=== PATIENT | female | born 1990 | race Caucasian/White ===

== ENCOUNTER 2020-03-18 12:54 | Outpatient (REF) | payer MEDICAID, SELFPAY | END 2020-03-18 12:55 | disposition home or self-care (01) | LOC: HO.LAB 12:54 | PROVIDERS: Visit Provider Internal Medicine | DX: Z20.828 Contact with and (suspected) exposure to other viral communicable diseases (principal) | CPT/HCPCS: 87635 ==

== ENCOUNTER 2020-09-02 14:08 | Outpatient (REF) | payer MEDICAID, SELFPAY ==
[2020-09-03 07:13] LABS: COVID-19 Test Negative (Negative)
== END 2020-09-02 14:09 | disposition home or self-care (01) ==
LOC: HO.LAB 14:08
PROVIDERS: Visit Provider Internal Medicine
DX: Z20.822 Contact with and (suspected) exposure to COVID-19 (principal)
CPT/HCPCS: 36415; 87635; C9803

== ENCOUNTER 2020-11-23 00:52 | Emergency (ER) | payer MEDICAID, SELFPAY ==
--- NOTE | ~2020-11-23 | XR_ITS ---
EXAMINATION: XR CHEST CLINICAL INFORMATION: Cough. Congestion. COMPARISON: 10/29/2017 TECHNIQUE: 2 views of the chest were obtained. FINDINGS: The lungs are well expanded. There is no focal consolidation, edema, or effusion. No pneumothorax. The cardiomediastinal silhouette is within normal limits. No acute osseous abnormality. XR/XR chest 2V IMPRESSION: Clear lungs.
[2020-11-23 01:40] VITALS: BP 142/91; PULSE 77; RESP 16; TEMP 37.3; O2SAT 97; BMI 29.0
--- NOTE | 2020-11-23 02:33 | ED_ITS ---
HPI - URI/Sore Throat General Chief Complaint: Upper Respiratory Symptoms Stated Complaint: SOB n coughing Time Seen by Provider: 11/23/20 00:56 Source: patient Mode of arrival: ambulatory History of Present Illness HPI Narrative: 30-year-old female presents with 1 month of cough, shortness of breath, congestion with nasal congestion but denies any fevers, chills, sore throat. She has completed 1 course of Z-Donis provided by her primary care provider and states that when receiving antibiotic she felt much better but as soon is a were finished symptoms returned. Otherwise, she states her LMP is 2 weeks ago and denies any GI or symptoms. Related Data Previous Rx's Medication Instructions Recorded doxycycline hyclate 100 mg PO BID 7 Days #14 cap 11/23/20 Allergies Allergy/AdvReac Type Severity Reaction Status Date / Time Penicillins Allergy Unknown HIVES,RASH Unverified 02/06/20 15:54 Penicillin Allergy Unknown Uncoded 11/17/11 00:00 Review of Systems Review of Systems: Pertinent positives and negatives as stated in HPI 10 point review of systems is otherwise negative. [facility] Past Medical History Source: nursing notes reviewed Social History Social History Advance Directives: No Advance Directives Information Provided: No Physical Exam Vital Signs: Vital Signs: Last Vital Signs Temp 99.1 F 11/23/20 01:40 Pulse 77 11/23/20 01:40 Resp 16 11/23/20 01:40 BP 142/91 H 11/23/20 01:40 Pulse Ox 97 11/23/20 01:40 Body Mass Index 29.0 VITAL SIGNS: Reviewed. GENERAL: Well developed, well nourished, in no acute distress. HEAD: Normocephalic/atraumatic EYES: PERRLA, EOMI EARS: Ext canals without abnormality, TMs non-bulging and non-erythematous NOSE: Nasal congestion with boggy turbinates OROPHARYNX: no oral lesions noted, posterior pharynx clear and non-erythematous without noted tonsillar enlargement/erythema/exudates NECK: Supple, no adenopathy LUNGS: Normal breath sounds, no expiratory wheezes or rhonchi noted. SpO2<97> CARDIOVASCULAR: Regular rate and rhythm without noted murmurs ABDOMEN: Soft, non-tender, non-distended with bowel sounds. SKIN: Inspection of the skin reveals no rashes NEUROLOGIC: Alert and oriented x 4. Strength and sensation to light touch were grossly intact x 4. Course Course Course Narrative: 30-year-old female with history and clinical presentation suggestive of seasonal allergy/ viral etiology for symptomatology but will evaluate with chest x-ray. Review of all investigations there are no acute findings and patient will be treated for sinusitis as her nasal congestion and postnasal drip have been ongoing for more than 10 days. MDM - URI/Sore Throat Lab Data Labs: Lab Results 11/23/20 Range/Units 02:45 Urine Test NEGATIVE (NEGATIVE) Discharge Plan Discharge Clinical Impression: Seasonal allergies, Sinusitis Patient Disposition: Home, Self-Care Instructions: Loratadine (By mouth), Fluticasone (Into the nose), Sinusitis (ED), Allergic Rhinitis (ED) Additional Instructions: Recommend starting [id number] allergy medications such as Claritin and/ or fluticasone. Complete the entire course of antibiotics and follow-up with your primary care provider for re-evaluation. Prescriptions: New doxycycline hyclate 100 mg capsule 100 mg PO BID 7 Days Qty: 14 RF: 0 Referrals: Physician,Unknown [Primary Care Provider] - 2 days
[2020-11-23] MEDS: diphenhydrAMINE HCL 25 MG TABLET PO (02:43)
[2020-11-23] MEDS: Benzonatate 100 MG CAPSULE PO (02:44)
[2020-11-23 03:02] LABS: UPreg QC Valid YES; Urine Pregnancy NEGATIVE (NEGATIVE)
== END 2020-11-23 04:11 | disposition home or self-care (01) ==
PROVIDERS: Emergency Provider Student in an Organized Health Care Education/Training Program
DX: J30.2 Other seasonal allergic rhinitis (principal); J32.9 Chronic sinusitis, unspecified
CPT/HCPCS: 71046; 81025; 99283; 99284; Q0163

== ENCOUNTER 2020-12-07 15:54 | Emergency (ER) | payer OTHER, MEDICAID, SELFPAY ==
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
[2020-12-07 16:22] VITALS: BP 114/74; BP 132/85; PULSE 74; PULSE 80; RESP 18; TEMP 36.7; O2SAT 97; O2SAT 99
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
[2020-12-07] MEDS: Cyclobenzaprine HCl 10 MG TABLET PO (17:21)
== END 2020-12-07 17:23 | disposition home or self-care (01) ==
LOC: HO.ED 17:11
PROVIDERS: Emergency Provider Emergency Medicine
DX: S39.012A Strain of muscle, fascia and tendon of lower back, initial encounter (principal); S29.011A Strain of muscle and tendon of front wall of thorax, initial encounter; V89.2XXA Person injured in unspecified motor-vehicle accident, traffic, initial encounter; Y93.9 Activity, unspecified; Y92.410 Unspecified street and highway as the place of occurrence of the external cause; Y99.9 Unspecified external cause status
CPT/HCPCS: 71046; 72100; 99283

== ENCOUNTER 2023-08-14 18:13 | Outpatient (REF) | payer MEDICAID, SELFPAY ==
[2023-08-14 18:30] LABS: Appearance Urine Cloudy; Color Urine Yellow; Glucose Urine UA Negative (Negative); Leukocyte Esterase Urine Negative (Negative); Nitrite Urine Negative (Negative); PH 5.5 (5.0-9.0); UMIC TRIGGER UACC YES; Urine Blood Small (1+) (Negative); Urine Ketones Negative (Negative); Urine Protein Negative (Neg-Trace)
[2023-08-14 18:46] LABS: Bacteria Urine 2+ (None Seen); Hyaline Casts Urine 0-2 /LPF (0-2); RBC Urine 0-2 /HPF (0-2); WBC Urine 0-5 /HPF (0-5)
== END 2023-08-14 18:14 | disposition home or self-care (01) ==
LOC: HO.HHCLNP 18:13
PROVIDERS: Visit Provider Nurse Practitioner Family
DX: N89.8 Other specified noninflammatory disorders of vagina (principal); R30.0 Dysuria
CPT/HCPCS: 36415; 81001; 81513; 87491; 87591

== ENCOUNTER 2023-10-10 16:57 | Outpatient (REF) | payer MEDICAID, SELFPAY ==
[2023-10-11 09:21] LABS: CT PCR NOT DETECTED (Not Detect.); NG PCR NOT DETECTED (Not Detect.)
[2023-10-18 22:47] LABS: HPV mRNA E6/E7 rflx Not Detected (Not Detected)
== END 2023-10-10 16:58 | disposition home or self-care (01) ==
LOC: HO.HHCLNP 16:57
PROVIDERS: Visit Provider Advanced Practice Midwife
DX: Z01.419 Encounter for gynecological examination (general) (routine) without abnormal findings (principal); Z11.3 Encounter for screening for infections with a predominantly sexual mode of transmission
CPT/HCPCS: 0353U; 87624; 88142

== ENCOUNTER 2024-07-16 16:21 | Outpatient (REF) | payer MEDICAID, SELFPAY ==
--- OUTSIDE RECORDS SUMMARY | 2024-07-16 19:46 | XMS_ITS | Encounter Summary ---
Author Organization [employer] Address [address] [place] [address] Care Team Providers Care Project Finance Analyst Name Role Phone Abiola Campbell NESSA Primary Care Provider [phone] Reason for Visit * Reason Onset Date Comments appt or medication 08/18/2022 Encounter Details Date Type Department Care Team ([facility] st Contact Info) Description 08/18/2022 Telephone [facility] [address] [place] [address] Jenna Hager DDS [address] [place] [address] appt or medication Social History Tobacco Use Types Packs/Day Years Used Date Smoking Tobacco: Every Day Cigarettes Smokeless Tobacco: Never Alcohol Use Standard Drinks/Week Comments Never 0 (1 standard drink = 0.6 oz pur e alcohol) Comments Unknown Sex and Gender Information Value Date Recorded Sex Assigned at Female 03/21/2022 10:16 AM EDT Legal Sex Female 10:16 AM EDT Gender Identity Female 03/21/2022 10:16 AM EDT Sexual Orientation Straight 03/21/2022 10 :16 AM EDT COVID-19 Exposure Response Date Recorded In the last 10 days, have yo u been in contact with someone who was confirmed or suspected to have Coronavirus/COVID-19? No / Unsure 08/03/2022 3:41 PM EDT documented as of this encounter Miscellaneous Notes * Telephone Encounter - Jenna Hager DDS - 08/18/2022 11:39 AM EDT Ericka West pt needs extraction appt and she is waiting on Dr. Kandru availability. I will send pain medication for her, but to please schedule the appts once available. Thanks, Dr. Lagos * Telephone Encounter - Jenna Paul - 08/18/2022 10:55 AM EDT Patient came in as ER patient and was scripted antibiotics. She said they worked initially but ended up having diarrhea from them. She also said as soon as she finished them yesterday the pain came back and radiating to her ear. Pls advise. documented in this encounter Plan of Treatment Not on file documented as of this encounter Visit Diagnoses Not on filedocumented in this encounter Care Teams Project Finance Analyst Relationship Specialty Start Date End Date Abiola Campbell ANP [address] [place] [id number] PCP - General Family Medicine 10/08/19 documented as of this encounter
--- OUTSIDE RECORDS SUMMARY | 2024-07-16 19:46 | XMS_ITS | Encounter Summary ---
Author Organization [employer] [facility] Address [address] [place] [address] Care Team Providers Care Sfdc Technical Architect Name Role Phone Abiola Campbell Primary Care Provider [phone] Reason for Visit * Reason Onset Date Comments Nurse Triage 08/23/2023 Encounter Details Date Type Department Care Team ([facility] st Contact Info) Description 08/23/2023 Telephone [facility] [address] [place], [place] [phone] Abiola Campbell ANP [address] [place] [address] Nurse Triage Social History Tobacco Use Types Packs/Day Years [...] Orientation Straight 03/21/2022 10 :16 AM EDT documented as of this encounter Miscellaneous Notes * Telephone Encounter - Jossy Singh RN - 08/23/2023 11:29 AM EDT Triage call Pt reports cold symptoms which started 08/20/23. Pt reports tactile fever, sore throat, nasal congestion , body aches, nausea, diarrhea, sneezing and cough. Pt had headache yesterday not today tylenol effective for relief. No difficulty breathing, cough is productive with greenish colored phlegm. Pt's two children have had colds and now Pt. Pt is given home care advice. Pt requests to see provider for excuse for work. Pt is advised to come to [facility] for provider to see Pt and obtain work excuse. Pt didn't test for Covid. Unable to check insurance due to system down at time of triage. Protocol Used: Common Cold (Adult) Protocol-Based Disposition: Home Care Positive Triage Question: * Colds with no complications * All higher-acuity triage questions were negative Care Advice Discussed: * Reassurance and Education - Common Cold Symptoms * Treatment for Other Cold Symptoms * Humidifier * Reasons To Call Back - Fever lasts over 3 days - Runny nose lasts over 10 days - You become short of breath - You become worse * Telephone Encounter - Ev Burleson - 08/23/2023 11:16 AM EDT Symptoms: Fever, Nausea But No Vomiting, Body Aches Outcome: Schedule an appointment to be seen within 24 hours Reason: Caller denied all higher acuity questions The caller accepted this outcome documented in this encounter Plan of Treatment Not on file documented as of this encounter Visit Diagnoses Not on filedocumented in this encounter Care Teams Sfdc Technical Architect Relationship Specialty Start Date End Date Abiola Campbell ANP [address] [place] [id number] PCP - General Family Medicine 10/08/19 documented as of this encounter
--- OUTSIDE RECORDS SUMMARY | 2024-07-16 19:46 | XMS_ITS | Encounter Summary ---
Author Organization [employer] Address [address] [place] [address] Care Team Providers Care Recreation Instructor Name Role Phone Abiola Campbell NESSA Primary Care Provider [phone] Reason for Visit * Reason Comments Urinary Frequency Vaginal Discharge Encounter Details Date Type Department Care Team ([facility] st Contact Info) Description 07/16/2024 1:00 PM EST Office Visit [facility] MED[facility]INE [address] [place] [address] CNM [address] [place] [address] Candidiasis of vulva and vagina (Primary Dx); Dysuria; Screening examination for venereal disease; Dermatitis Social History Tobacco Use Types Packs/Day Years Used Date Smoking Tobacco: Every Day Cigarettes Smokeless Tobacco: Never Tobacco Cessation:Ready to Q uit: Not Asked; Counseling Given: Not Answered Alcohol Use Standard Drinks/Week Comments Never 0 (1 standard drink = 0.6 oz pur e alcohol) Comments No Sex and Gender Information Value Date Recorded Sex Assigned at Female 03/21/2022 10:16 AM EDT Legal Sex Female 10:16 AM EDT Gender Identity Female 03/21/2022 10:16 AM EDT Sexual Orientation Straight 03/21/2022 10 :16 AM EDT documented as of this encounter Last Filed Vital Signs Vital Sign Reading Time Taken Comments Blood Pressure 122/84 07/16/2024 1:04 PM EST Pulse 82 07/16/2024 1:04 PM EST Temperature 36.3 ??C (97.4 ??F) 07/16/2024 1:04 PM ES T Respiratory Rate 20 07/16/2024 1:04 PM EST Oxygen Saturation 99% 07/16/2024 1:04 PM EST Inhaled Oxygen Concentration - - Weight 86.6 kg (191 lb) 07/16/2024 1:04 PM EST Height 162.6 cm (5' 4 ) 07/16/2024 1:04 PM EST Body Mass Index 32.79 07/16/2024 1:04 PM EST documented in this encounter Progress Notes * [address], [place] - 07/16/2024 1:00 PM EST Subjective Patient ID: Amara Villalobos is a 33 y.o. female who presents for vaginal symptoms Per triage, notes vaginal irritation and discharge, burning when urine touches skin, but no true dysuria. Treated for trichomonas 09/2023. Gonorrhea/Chlamydia negative from that visit. Broke up with partner, now back together. Not sure if he was ever treated for trichomonas. Would like full STI testing today. Pap NIL/HPV neg 09/2023. Has tubal ligation. LMP 06/18/2024. Reports itchy rash near left nipple x 3 days, no other breast symptoms. Review of Systems Constitutional: Negative for chills and fever. Genitourinary: Positive for dyspareunia, dysuria and vaginal discharge. Negative for pelvic pain, vaginal bleeding and vaginal pain. Musculoskeletal: Negative for back pain. Skin: Positive for rash. Objective BP 122/84 (BP Location: Right arm, Patient Position: Sitting, BP Cuff Size: Adult) Pulse 82 Temp 97.4 ??F (36.3 ??C) (Temporal) Resp 20 Ht 5' 4 (1.626 m) Wt 191 lb (86.6 kg) SpO2 99% BMI 32.79 kg/m?? Physical Exam Constitutional: Appearance: Normal appearance. Chest: Breasts: Left: Skin change present. Comments: Visual exam of left breast only. Tiny pustule and faint scaling left areola. Genitourinary: Labia: Right: No rash, tenderness, lesion or injury. Left: No rash, tenderness, lesion or injury. Vagina: No signs of injury and foreign body. Vaginal discharge and erythema present. No tenderness,bleeding, lesions or prolapsed vaginal patrick. Cervix: No cervical motion tenderness, discharge, friability, lesion, erythema or cervical bleeding. Comments: Erythema clitoral rivero Neurological: Mental Status: She is alert. Psychiatric: Mood and Affect: Mood normal. Behavior: Behavior normal. Assessment/Plan Diagnoses and all orders for this visit: Candidiasis of vulva and vagina - POCT fern test, vaginal fluid manually resulted Prefers oral treatment. For fluconazole as prescribed. Report worsening/persistent symptoms. Avoid vaginal irritants. Dysuria - POCT urinalysis dipstick manually resulted - Culture, Urine, Routine More burning when urine touches skin, not true dysuria. Blood on UA, menses due soon. If no menses in next day, will repeat UA after menses. Culture sent as precaution. Screening examination for venereal disease - Chlamydia/N. Gonorrhoeae RNA, TMA, Vagina - Bacterial Vaginosis; Future - HIV-1/2 Antigen and Antibodies, Fourth Generation, with Reflexes; Future - Syphilis Screen; Future - Hepatitis B Core Antibody, Total; Future - Hepatitis C Antibody with Reflex to HCV, RNA, Quantitative, Real-Time PCR; Future - Hepatitis B surface antigen, EIA; Future - Hepatitis B Surface Antibody, Qualitative; Future Vaginal and serum labs sent. Will contact with results. No evidence of trichomonas on wet mount, but will send bacterial vaginosis swab to confirm. Dermatitis New onset x 3 days, on left areola. Has antibiotic ointment at home. Use for next few days. If no improvement, please let me know and will reassess/order imaging if indicated. Not consistent with malignant process. Other orders - fluconazole (Diflucan) 150 MG tablet; Take 1 tablet (150 mg) by mouth 1 (one) time for 1 dose. 2nd dose in 3 days if needed documented in this encounter Plan of Treatment Scheduled Orders Name Type Priority Associated Diagnoses Orde r Schedule Chlamydia/N. Gonorrhoeae RNA, TMA, Vagina Microbiology Routine Screening examination for venereal disease Ordered: 07/16/2024 Bacterial Vaginosis Microbiology Routine Screening examination for venereal disease Expected: 07/16/2024 (Approximate), Expires: 07/16/2025 HIV-1/2 Antigen and Antibodies, Fourth Generation, with Reflexes Lab Routine Screening examination for venereal disease Expected: 07/16/2024 (Approximate), Expires: 07/16/2025 Syphilis Screen Lab Routine Screening examination for venereal disease Expected: 07/16/2024 (Approximate), Expires: 07/16/2025 Hepatitis B Core Antibody, Total Lab Routine Screening examination for venereal disease Expected: 07/16/2024 (Approximate), Expires: 07/16/2025 Hepatitis C Antibody with Reflex to HCV, RNA, Quantitative, Real-Time PCR Lab Routine Screening examination for venereal disease Expected: 07/16/2024 (Approximate), Expires: 07/16/2025 Hepatitis B surface antigen, EIA Lab Routine Screening examination for venereal disease Expected: 07/16/2024 (Approximate), Expires: 07/16/2025 Hepatitis B Surface Antibody, Qualitative Lab Routine Screening examination for venereal disease Expected: 07/16/2024 (Approximate), Expires: 07/16/2025 Culture, Urine, Routine Microbiology Routine Dysuria Ordered: 07/16/2024 documented as of this encounter Procedures Procedure Name Priority Date/Time Associated Diagnosis Comments POCT WET MOUNT/RODGER Routine 07/16/2024 2: 05 PM EST Candidiasis of vulva and vagina POCT URINALYSIS DIPSTICK Routine 07/16/2024 1:16 PM EST Dysuria documented in this encounter Results * POCT fern test, vaginal fluid manually resulted (07/16/2024 2:05 PM EST) RODGER Prep Positive Comment:pH 4.5, neg whiff, n eg clue, neg trich, new wbc, pos yeast Vaginal Fluid Vaginal structure / Unknown 07/16/2024 2:05 PM EST Impressions [facility] CNM - 07/16/2024 2:05 PM EST Vulvovaginal candidiasis [facility] CNM POINT OF CARE TEST ENTER/ EDIT ORDERABLES Final Result * (ABNORMAL) POCT urinalysis dipstick manually resulted (07/16/2024 1:16 PM EST) Color, UA Yellow Clarity, UA Clear Glucose, UA Negative Bilirubin, UA Negative Ketones, UA Negative Spec Grav, UA 1.030 Blood, UA Positive(A) Negative, None Detected Comment:moderate pH, UA 5.5 Protein, UA Negative Urobilinogen, UA 0.2 Leukocytes, UA Negative Negative, Rare, Trace Nitrite, UA Negative Negative, None Detected Appearance, UA clear QC Media Lot # [id number] Lot# Expiration Date Urine 07/16/2024 1:16 PM EST [facility] POINT OF CARE TEST ENTER/ EDIT ORDERABLES Final Result documented in this encounter Visit Diagnoses Diagnosis Candidiasis of vulva and vagina- Primary Dysuria Screening examination for venereal disease Dermatitis Contact dermatitis and other eczema, due to unspecified cause documented in this encounter Care Teams Recreation Instructor Relationship Specialty Start Date End Date Abiola Campbell ANP [address] [place] [id number] PCP - General Family Medicine 10/08/19 documented as of this encounter
--- OUTSIDE RECORDS SUMMARY | 2024-07-16 19:46 | XMS_ITS | Encounter Summary ---
Author Organization [employer] Address [address] [place] [address] Care Team Providers Care Orthophoto Tech/Draftsman Name Role Phone Abiola Campbell Primary Care Provider [phone] Reason for Visit * Reason Onset Date Comments Results 08/15/2023 Encounter Details Date Type Department Care Team ([facility] st Contact Info) Description 08/15/2023 Telephone [facility] MEDICINE [address] [place] [address] Abiola Campbell ANP [address] [place] [address] Results Social History Tobacco Use Types Packs/Day Years [...] encounter Miscellaneous Notes * Telephone Encounter - Lisseth Peña RN - 08/16/2023 9:53 AM EDT Results are still pending, inform pt. [facility] will call once received result. Pt. Verbally agreed and understood. * Telephone Encounter - Rhina Ovalle - 08/15/2023 9:21 AM EDT TC from pt requesting call back regarding Results. Type of results: urinalysis and swab Date when done: 08/13 Facility: [facility] Please contact pt at [phone] documented in this encounter Plan of Treatment Not on file documented as of this encounter Visit Diagnoses Not on filedocumented in this encounter Care Teams Orthophoto Tech/Draftsman Relationship Specialty Start Date End Date Abiola Campbell ANP [address] [place] [id number] PCP - General Family Medicine 10/08/19 documented as of this encounter
--- OUTSIDE RECORDS SUMMARY | 2024-07-16 19:46 | XMS_ITS | Encounter Summary ---
Author Organization [employer] [facility] Address [address] [facility] [address] 7[address] [place] [address] Care Team Providers Care Patent Lawyer Name Role Phone Abiola Campbell Primary Care Provider [phone] Encounter Details Date Type Department Care Team (Latest Contact Info) Description 07/16/2024 Travel Social History Tobacco Use Types Packs/Day Years [...] AM EDT documented as of this encounter Plan of Treatment Not on file documented as of this encounter Visit Diagnoses Not on filedocumented in this encounter Care Teams Patent Lawyer Relationship Specialty Start Date End Date Abiola Campbell ANP [address] [place] [phone] PCP - General Family Medicine 10/08/19 documented as of this encounter
--- OUTSIDE RECORDS SUMMARY | 2024-07-16 19:46 | XMS_ITS | Encounter Summary ---
Author Organization [employer] Address [address] [place] [address] Care Team Providers Care Disbursing Officer Name Role Phone Abiola Campbell Primary Care Provider [phone] Reason for Visit * Reason Onset Date Comments Nurse Triage 07/16/2024 Encounter Details Date Type Department Care Team ([facility] st Contact Info) Description 07/16/2024 Telephone [facility] MEDICINE [address] [place] [address] Abiola Campbell ANP [address] [place] [address] Nurse Triage Social History Tobacco Use Types [...] encounter Miscellaneous Notes * Telephone Encounter - Pau Pendleton RN - 07/16/2024 10:11 AM EST Call returned to Amara Villalobos to triage below. Reports having vaginal redness and pain. Reports having pain with passing urine due to red irritation. Pt having vaginal discharge white thick. No odor. Denies frequency. Does endorse urgency. Pt reports sx onset x 3 days. Pt having pelvic cramping. Per pt has hx of trichomonas and completed previous tx but partner was never treated. Pt denies vulvar rash or blisters. Pt advised of disposition, agrees to sick on site with CNM today for exam. Protocol Used: Vaginal Discharge (Adult) Protocol-Based Disposition: See in Office or Video Visit within 3 Days Future Appointments Date Time Provider Department Center 07/16/2024 1:[address] CNM MEDICINE [facility] Positive Triage Question: * Bad smelling vaginal discharge * All higher-acuity triage questions were negative Care Advice Discussed: * Reasons To Call Back - Discharge becomes yellow or green - Discharge becomes foul smelling or itchy - Fever or abdomen pain occur - You become worse Insurance verified as active per Real Time Eligibility in [employer]. * Telephone Encounter - Page Weeks - 07/16/2024 9:52 AM EST Symptoms: Rash or Redness on One Body Area Only, Urination Pain Outcome: Schedule an urgent appointment (within 4 hours) or talk to a nurse or provider soon Reason: Skin is painful to touch The caller accepted this outcome. documented in this encounter Plan of Treatment Not on file documented as of this encounter Visit Diagnoses Not on filedocumented in this encounter Care Teams Disbursing Officer Relationship Specialty Start Date End Date Abiola Campbell ANP [address] [place] [id number] PCP - General Family Medicine 10/08/19 documented as of this encounter
--- OUTSIDE RECORDS SUMMARY | 2024-07-16 19:46 | XMS_ITS | Clinical Summary ---
Author Organization [facility] Address [address] [facility] [address] [facility] 7t [place] [address] Care Team Providers Care Immigration Patrol Inspector Name Role Phone Abiola Campbell Primary Care Provider [phone] Allergies Active Allergy Reactions Criticality Noted Date Comments Penicillins Rash Low 10/12/2012 Medications fluticasone (Flonase) 50 MCG/ACT nasal spray Administer 2 sprays into each nostril in the morning. Shake gently. Before first use, prime pump. After use, clean tip and replace cap. 16 g 2 4 08/23/19 Active fluconazole (Diflucan) 150 MG tablet Take 1 tablet (150 mg) by mouth 1 (one) time for 1 dose. 2nd dose in 3 days if needed 1 tablet 1 5 07/16/19 25 Active Active Problems Problem Noted Date Diagnosed Date Dental caries 10/11/2022 Encounters Date Type Department Care Team Description 07/16/2024 1:00 PM EST Office Visit [facility] MEDICINE [address] [place] [address] [phone] Ester Chacko CNM Candidiasis of vulva and vagina (Primary Dx); Dysuria; Screening examination for venereal disease; Dermatitis 07/16/2024 Travel 07/16/2024 Telephone [facility]INE [address] [place] [address] [phone] Abiola Campbell ANP Nurse Triage from Last 3 Months Social History Tobacco Use Types Packs/Day Years [...] Orientation Straight 03/21/2022 10 :16 AM EDT Last Filed Vital Signs Vital Sign Reading [...] Mass Index 32.79 07/16/2024 1:04 PM EST Plan of Treatment Health Maintenance Due Date Last Done Comments Dental Oral Exam 1989 Dental Prophylaxis 1989 Dental X-Ray: Full Mouth 1989 Depression Screening 1989 HIV Screening 1989 Lipid Panel 1989 SDOH Screening 1989 Hepatitis A Vaccines (2 of 2 - 2-dose series) 11/16/1998 05/18/1998 Alcohol/Substance Use Screening 2001 Hepatitis C Screening 2007 Hepatitis B Vaccines (1 of 3 - 19+ 3-dose series) 2008 Pneumococcal Vaccine: Pediatrics (0 to 5 Years) and At-Risk Patients (6 to 49) Years) (1 of 2 - PCV) 2008 HPV Vaccines (2 - 3-dose series) 11/09/2012 10/12/2012 DTaP/Tdap/Td Vaccines (6 - Td or Tdap) 11/02/2021 11/03/2011, 06/22/2001, 05/11/1995, Additional history exists Dental X-Ray: Bitewings 10/29/2023 10/27/2022, 08/03 COVID-19 Vaccine ( season) 2024 06/04/2021, 05/13/2021 Influenza Vaccine (#1) 2024 03/05/2010 Family Planning (PISQ) 07/16/2025 07/16/2024 Tobacco Screening 07/16/2025 07/16/2024 Cervical Cancer Screening 10/09/2028 HPV/Cotest 10/09/2028 10/10/2023 Pap Smear 10/09/2028 10/10/2023 Zoster Vaccines (1 of 2) 2039 RSV Patients and Patients Aged 60 years or older (1 - 1-dose 75+ series) 2064 IPV Vaccines Completed 07/20/1994, 08/21, 1993, Additional history exists HIB Vaccines Completed 12/26/1997, 04/22, 06/16/1993 Meningococcal Vaccine Aged Out No adarsh jessi eligible based on patient's age to complete this topic RSV under 20 months Aged Out No longe r eligible based on patient's age to complete this topic Rotavirus Vaccines Aged Out No longer eligible based on patient's age to complete this topic Procedures Procedure Name Priority Date/Time Associated Diagnosis Comments POCT WET MOUNT/RODGER Routine 07/16/2024 2: 05 PM EST Candidiasis of vulva and vagina POCT URINALYSIS DIPSTICK Routine 07/16/2024 1:16 PM EST Dysuria HPV MRNA E6/E7 REFLEX TO HPV 16, 18/45 Routine 10/10/2023 2:20 PM EDT PAP SMEAR Routine 10/10/2023 2:20 PM EDT Cervical cancer screening BITEWING - SINGLE RADIOGRAPHIC IMAGE Routine 10/27/2022 1:30 PM EDT Dental caries from Last 3 Months or Most Recently Relevant to Health Maintenance Results * POCT fern test, vaginal fluid manually resulted (07/16/2024 2:05 PM EST) RODGER Prep Positive Comment:pH 4.5, neg whiff, n eg clue, neg trich, new wbc, pos yeast Vaginal Fluid Vaginal structure / Unknown 07/16/2024 2:05 PM EST Impressions Ester Chacko, [facility] - 07/16/2024 2:05 PM EST [facility] POINT OF CARE TEST ENTER/ EDIT ORDERABLES [...] Expiration Date Urine 07/16/2024 1:16 PM EST [facility] POINT OF CARE TEST ENTER/ EDIT ORDERABLES Final Result * HPV mRNA E6/E7 w/Reflex to HPV Genotypes 16, 18/45 (10/10/2023 2:20 PM EDT) Pathologist [facility] HPV nRNA E6/E7 Not Detected Not Detected [facility] Comment:Methodology: Transcr iption-Mediated AmplificationThis assay detects E6/E7 viral messenger RNA (mRNA) from 14high-risk HPV types (16,18,31,33,35,39,45,51,52,56,58,59,66,68).Cervical sources are required for HPV testing.If a vaginal source from a patient who has had atotal hysterectomy with removal of cervix wassubmitted, please contact the testing laboratoryfor alternative testing options.For additional information, please refer [email or web address]/WQK568v0(This link if provided for information/educational purposes only.)THIS TEST WAS PERFORMED AT:[facility] [place] [id number] SEAY MD HPV mRNA E6/E7 TNP [facility] HPV 16 RNA TNP [facility] HPV 18/45 RNA TNP [facility] 10/10/2023 2:20 PM EDT 10/11/2023 11:40 AM EDT Ester Chacko CNM LAB CYTOLOGY ORDERABLES F inal Result [facility] [address] [place] [phone] * Pap Smear (10/10/2023 2:20 PM EDT) Swab Cervix uteri structure / Unknown 10/10/2023 2:20 PM EDT 10/11/2023 11:40 AM EDT Narrative [facility] - 10/30/2023 4:45 PM EDT ----- ------- Name: Amara Villalobos ? Age/Sex: 33/F ? : 1990 Unit#: [id number] ?? Attend Dr: ESTER CHACKO CNM ?Re10/10/23 ?Status: DEP REF ? Location: HO.HHCLNP ? Disch: ? ----- ------- SPEC : [id number] ? RECD: 10/11/23 ? STATUS: ??SOUT ? REQ NUM: [id number] ? LEW: 10/10/23 ? SUBM DR: ESTER CHACKO CNM ? ENTERED: ??10/11/23 ?SP TYPE: Pap Smr ?OTHR : ? ORDERED: ??Pap Smear ? Interpretation ?? Satisfactory for evaluation. ?? No endocervical cells seen. ?? Negative for intraepithelial lesion or malignancy. ?? Microorganisms consistent with Trichomonas vaginalis. ? HPV mRNA E6/E7: ?NOT DETECTED ? This assay detects E6/E7 viral messenger RNA (mRNA) from 14 high-risk HPV types (16, 18, ?? 31, 33, 35, 39, 45, 51, 52, 56, 58, 59, 66, 68) ? HPV testing performed by [employer], [place], [place]. ??See reference laboratory ?? portion of the EMR for entire report. ?Clinical Information Previous PAP test: WNL ? Material Received ?? ThinPrep-Cervical ----- ------- Signed (signature on file) Arabella Joyce 10/30/231644 ? ----- ------- ? END OF REPORT ? us Ester Chacko [facility] CYTOLOGY ORDERABLES F inal Result [facility] [address] [place] [address] [phone] from Last 3 Months or Most Recently Relevant to Health Maintenance Insurance [facility] C3 Care Teams Immigration Patrol Inspector Relationship Specialty Start Date End Date Abiola Campbell ANP [address] [place] [address] PCP - General Family Medicine 10/08/19
[2024-07-17 11:47] LABS: CT PCR NOT DETECTED (Not Detect.); NG PCR NOT DETECTED (Not Detect.)
[2024-07-17 14:01] LABS: Bacterial Vaginosis PCR POSITIVE (Negative); Candida Group PCR DETECTED (Not Detect); Candida glab krusei PCR NOT DETECTED (Not Detect); Trichomonas vaginalis PCR NOT DETECTED (Not Detect)
== END 2024-07-16 16:22 | disposition home or self-care (01) ==
LOC: HO.LNP 16:21
PROVIDERS: Visit Provider Advanced Practice Midwife
DX: Z11.3 Encounter for screening for infections with a predominantly sexual mode of transmission (principal); R30.0 Dysuria
CPT/HCPCS: 81515; 87086; 87491; 87591

== ENCOUNTER 2024-11-12 11:09 | Outpatient (REF) | payer MEDICAID, SELFPAY | END 2024-11-12 11:10 | disposition home or self-care (01) | LOC: HO.HHCLNP 11:09 | PROVIDERS: Visit Provider Internal Medicine | DX: J02.9 Acute pharyngitis, unspecified (principal) | CPT/HCPCS: 87070 ==

== ENCOUNTER 2025-05-11 16:51 | Emergency (ER) | payer MEDICAID, SELFPAY ==
[2025-05-11 16:57] VITALS: BP 159/77; PULSE 100; RESP 18; TEMP 37.4; O2SAT 98; BMI 31.0
--- NOTE | 2025-05-11 16:58 | ED.FEVER ---
HPI - Fever General Chief Complaint: Upper Respiratory Symptoms Stated Complaint: Chills Body pain cough sob Time Seen by Provider: 05/11/25 16:58 History of Present Illness ED Provider: Gardenia Brar NP HPI Narrative: 34-year-old female otherwise healthy presents to the ED complaining of 1-2 days' worth of generalized body aches, subjective fever and chills, nonproductive cough. No substernal chest pain or pressure, shortness of breath. Does report nasal congestion. Reports sneezing, no sore throat. 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 No abdominal pain, nausea or vomiting, diarrhea, constipation, urinary complaints. Related Data Previous Rx's ?Medication ?Instructions ?Recorded doxycycline hyclate 100 mg capsule 100 mg PO BID 7 days #14 caps 11/23/20 acetaminophen 300 mg-codeine 30 mg 1 tab PO Q8H PRN pain #10 tabs 12/07/20 tablet cyclobenzaprine 10 mg tablet 10 mg PO Q8H Muscle spasm #10 tabs 12/07/20 Allergies Allergy/AdvReac Type Severity Reaction Status Date / Time Penicillins Allergy Unknown HIVES,RASH Verified 05/11/25 16:59 Penicillin Allergy Unknown Unknown Uncoded 05/11/25 16:59 Review of Systems Review of Systems: ROS is otherwise negative unless mentioned in HPI. [facility] Past Medical History Medical History No known health problems Social History Social History Do you have a plan to hurt others: No Plan Physical Exam Exam: Exam: Nursing notes and vital signs reviewed. Constitutional: Well-appearing, NAD. Alert. Oriented X3. ENT: Pharynx normal. +Nasal congestion. Neck: Normal inspection. Neck supple. CVS: Pulses normal. Respiratory: No respiratory distress. Abdomen: Soft and nontender. +BSx4. Skin: Skin warm and dry. Normal skin color. Extremities: No lower extremity edema. Neuro: Oriented X 3. No motor deficit. Vital Signs: Vital Signs: Last Vital Signs Temp 99.3 F 05/11/25 16:57 Pulse 100 05/11/25 16:57 Resp 18 05/11/25 16:57 BP 159/77 H 12/21/25 16:57 Pulse Ox 98 05/11/25 16:57 O2 Del Method Room Air 05/11/25 16:57 BMI result Body Mass Index 31.0 Medications Administered Discontinued Medications Generic Name Dose Route Start Last Admin Trade Name Luis Enrique PRN Reason Stop Dose Admin Acetaminophen 975 mg 05/11/25 18:05 05/11/25 18:08 Acetaminophen 325 Mg Tablet PO 05/11/25 18:06 975 mg ONCE ONE Administration Ibuprofen 600 mg 05/11/25 18:05 05/11/25 18:08 Ibuprofen 600 Mg Tablet PO 05/11/25 18:06 600 mg ONCE ONE Administration Medical Decision Making Medical Decision Making [facility] Narrative: Well-appearing female, NAD. Dry, nonproductive cough, nasal congestion present on exam. Plan for viral swab, we will reassess. Less likely PNA, cough is nonprod, afebrile. 6:13 pm-- viral panel is positive for influenza A. We will proceed with discharge plan with outpatient follow up. I did consider Tamiflu however patient has had symptoms for an unclear period of time, likely we will not assist with symptom management. Recommended [id number] pain control, Tylenol, ibuprofen alternating. Patient agreeable, expressed understanding. Differential Diagnosis Differential Diagnoses: The differential diagnosis associated with the presentation includes bronchitis, viral illness, PNA Admission/Observation Consideration of admission/observation: Escalation of care including admission/observation considered (Not indicated) Lab Data [facility] Lab Attestation statement: I reviewed the patient's lab results. (Positive for influenza A) Labs: Lab Results 05/11/25 Range/Units 17:19 Influenza Type A (PCR) POSITIVE A (Negative) Influenza Type B (PCR) NEGATIVE (Negative) RSV RNA Qual (PCR) NEGATIVE (Negative) SARS-CoV-2 RNA (RT-PCR) NEGATIVE (Negative) Independent Historian None External Record Review External record reviewed: Outside ED record and Other Prescription Management I considered prescription management with: Antiviral Not indicated given unclear symptom duration Social Determinants Patient?s care significantly limited by Social Determinants of Health including: Problems related to primary support group Discharge Plan Discharge Clinical Impression: Influenza A Patient Disposition: Home, Self-Care Instructions: Influenza (DC) Additional Instructions: As we discussed, your viral panel here is positive for influenza A. Please treat yourself symptomatically with [id number]-zer-[id number] Tylenol, ibuprofen. Follow up with your PCP within 1 week. With any worsening complaints at any time, seek re-evaluation in the ED. Prescriptions: No Action cyclobenzaprine 10 mg tablet 10 mg PO Q8H Qty: 10 0RF acetaminophen-codeine 300-30 mg tablet 1 tab PO Q8H PRN (Reason: pain) Qty: 10 0RF doxycycline hyclate 100 mg capsule 100 mg PO BID 7 Days Qty: 14 0RF Referrals: [facility] [place] Family Medicine [Provider Group, Family Practice] Print Language: Turkmen
[2025-05-11 18:11] LABS: Resp Syncy Virus RNA Qual PCR NEGATIVE (Negative); SARS COV2 PCR INHOUSE NEGATIVE (Negative)
[2025-05-11 18:28] VITALS: BP 159/77; PULSE 100; RESP 18; TEMP 37.4; O2SAT 98
--- OUTSIDE RECORDS SUMMARY | 2025-05-11 18:39 | XMS_ITS | Clinical Summary ---
Author Organization [employer] Address [address] [place] [address] [address] [place] [address] Care Team Providers Care Contact Worker Name Role Phone Abiola Campbell Primary Care Provider [phone] Allergies Active Allergy Reactions Criticality Noted Date Comments Penicillins Rash Low 10/12/2012 Medications fluticasone (Flonase) 50 MCG/ACT nasal spray Administer 2 sprays into each nostril in the morning. Shake gently. Before first use, prime pump. After use, clean tip and replace cap. 16 g 2 4 Active azithromycin (Zithromax) 250 MG tablet Take 2 tabs PO daily x 1d then 1 tab PO daily on D2 to D5 6 tablet 5 Active Ventolin HFA 108 (90 Base) MCG/ACT inhaler INHALE 2 PUFFS EVERY 6 HOURS IF NEEDED FOR WHEEZING. 18 g 5 Active loratadine-pseu doephedrine ER (Claritin-D 24 Hour) 10-240 MG 24 hr tabletIndicatio ns:Viral syndrome Take 1 tablet by mouth Once per day. Do not crush, chew, or split. 10 tablet 5 02/07/20 26 Active Acetaminophen Extra Strength 500 MG tabletIndicatio ns:Viral syndrome TAKE 1 TABLET (500 MG) BY MOUTH EVERY 6 (SIX) HOURS IF NEEDED FOR MILD PAIN. FEVER 30 tablet 5 Active Active Problems Problem Noted Date Diagnosed Date Viral syndrome 02/06/2025 Assessment & Plan (02/06/2025 2:07 PM EDT): Pt' ssymptomatology and exam indicative of: Viral upper respiratory infection Negative COVID, flu, and strep tests. - Recommended hydration. Advised use of acetaminophen for fever or headache. Offered decongestant prescription for congestion. Provided work excuse for February 06, 2025 and February 07, 2025. Advised return to work if symptoms improve and confirmed not contagious. Pharyngitis 11/12/2024 Assessment & Plan (11/12/2024 7:18 PM EDT): Strep test is negative, may be that is resolving now since it has been a week already. However given that the infection seems to be going down to her lungs (? Bronchitis), I will treat her with Z-Donis which will cover both pharyngitis and bronchitis. Use Tylenol alternated with ibuprofen as needed for body aches, fever or chills. Stay home (she is out of work already), rest, hydration with p.o. fluids and p.o. intake as tolerated Wearing mask for at least 48 hours, advised regarding airborne precautions, wash your hands and dispose of toothbrush so she finishes antibiotics. Close contact to be tested as needed if they start with symptoms. Bronchitis 11/12/2024 Assessment & Plan (11/12/2024 7:18 PM EDT): I will start Z-Donis due to probably history of streptococcal pharyngitis. Dental caries 10/11/2022 Social History Tobacco Use Types Packs/Day Years Used Date Smoking Tobacco: Every Day Cigarettes Smokeless Tobacco: Never Tobacco Cessation:Ready to Q uit: Not Asked; Counseling Given: Not Answered Alcohol Use Standard Drinks/Week Comments Never 0 (1 standard drink = 0.6 oz pur e alcohol) Comments No Intention Date Recorded No desire to become (finding) 0 07/16/2024 Sex and Gender Information Value Date Recorded Sex Assigned at Female 03/21/2022 10:16 AM EDT Legal Sex Female 10:16 AM EDT Gender Identity Female 03/21/2022 10:16 AM EDT Sexual Orientation Straight 03/21/2022 10 :16 AM EDT Last Filed Vital Signs Vital Sign Reading Time Taken Comments Blood Pressure 130/70 02/06/2025 1:36 PM EDT Pulse 91 02/06/2025 1:36 PM EDT Temperature 36.9 C (98.4 F) 02/06/2025 1:36 PM EDT Respiratory Rate 20 02/06/2025 1:36 PM EDT Oxygen Saturation 99% 02/06/2025 1:36 PM EDT Inhaled Oxygen Concentration - - Weight 89.5 kg (197 lb 6.4 oz) 02/06/2025 1:36 P M EDT Height 160 cm (5' 3 ) 02/06/2025 1:36 PM EDT Body Mass Index 34.97 02/06/2025 1:36 PM EDT Plan of Treatment Health Maintenance Due Date Last Done Comments Dental Oral Exam 1989 Dental Prophylaxis 1989 Depression Screening 1989 HIV Screening 1989 Lipid Panel 1989 SDOH Screening 1989 Disability Screening 1989 Hepatitis A Vaccines (2 of 2 - 2-dose series) 11/16/1998 05/18/1998 Alcohol/Substance Use Screening 2001 Hepatitis C Screening 2007 Hepatitis B Vaccines (1 of 3 - 19+ 3-dose series) 2008 Pneumococcal Vaccine: Pediatrics (0 to 5 Years) and At-Risk Patients (6 to 49) Years (1 of 2 - PCV) 2008 HPV Vaccines (2 - 3-dose series) 11/09/2012 10/12/2012 DTaP/Tdap/Td Vaccines (7 - Td or Tdap) 11/02/2021 11/03/2011, 06/22/2001, 05/11/1995, Additional history exists Dental X-Ray: Bitewings 10/29/2023 10/27/2022, 08/03 COVID-19 Vaccine ( - season) 2025 06/04/2021, 05/13/2021 Influenza Vaccine (#1) 2025 03/05/2010 Family Planning (PISQ) 07/16/2025 07/16/2024 Tobacco Screening 02/06/2026 02/06/2025 Dental X-Ray: Full Mouth 10/20/2027 10/18/2024 Cervical Cancer Screening 10/09/2028 HPV/Cotest 10/09/2028 10/10/2023 Pap Smear 10/09/2028 10/10/2023 Zoster Vaccines (1 of 2) 2039 RSV Patients and Patients Aged 60 years or older (1 - 1-dose 75+ series) 2064 IPV Vaccines Completed 07/20/1994, 08/21, 1993, Additional history exists HIB Vaccines Completed 12/26/1997, 04/22, 06/16/1993 Meningococcal B Vaccine Aged Out No l onger eligible based on patient's age to complete this topic Meningococcal Vaccine Aged Out No adarsh jessi eligible based on patient's age to complete this topic RSV under 20 months Aged Out No longe r eligible based on patient's age to complete this topic Rotavirus Vaccines Aged Out No longer eligible based on patient's age to complete this topic Procedures Procedure Name Priority Date/Time Associated Diagnosis Comments HPV MRNA E6/E7 REFLEX TO HPV 16, 18/45 Routine 10/10/2023 2:20 PM EDT PAP SMEAR Routine 10/10/2023 2:20 PM EDT Cervical cancer screening BITEWING - SINGLE RADIOGRAPHIC IMAGE Routine 10/27/2022 1:30 PM EDT Dental caries from Last 3 Months or Most Recently Relevant to Health Maintenance Results * HPV mRNA E6/E7 w/Reflex to HPV Genotypes 16, 18/45 (10/10/2023 2:20 PM EDT) HPV nRNA E6/E7 Not Detected Not Detected [facility] Comment:Methodology: Transcr iption-Mediated AmplificationThis assay detects E6/E7 viral messenger RNA (mRNA) from 14high-risk HPV types (16,18,31,33,35,39,45,51,52,56,58,59,66,68).Cervical sources are required for HPV testing.If a vaginal source from a patient who has had atotal hysterectomy with removal of cervix wassubmitted, please contact the testing laboratoryfor alternative testing options.For additional information, please refer tohttp://education.Uruut/faq/GSK473k9(This link if provided for information/educational purposes only.)THIS TEST WAS PERFORMED AT:[facility] [place] [id number] SEAY MD HPV mRNA E6/E7 TNP [facility] HPV 16 RNA TNP [facility] HPV 18/45 RNA TNP [facility] 10/10/2023 2:20 PM EDT 10/11/2023 11:40 AM EDT us Ester Chacko CNM LAB CYTOLOGY ORDERABLES F inal Result [facility] [address] [place] [phone] * Pap Smear (10/10/2023 2:20 PM EDT) Swab Cervix uteri structure / Unknown 10/10/2023 2:20 PM EDT 10/11/2023 11:40 AM EDT Narrative [facility] - 10/30/2023 4:45 PM EDT ----- ------- Name: Amara Villalobos Wallace Age/Sex: 33/F : 1990 Unit#: [id number] Attend Dr: ESTER CHACKO CNM Re10/10/23 Status: DEP REF Location: HO.HHCLNP Disch: ----- ------- SPEC : [id number] RECD: 05 STATUS: BLUE BOLIVAR NUM: [id number] LEW: 10/10/[address] [facility] [address]: ESTER CHACKO CNM ENTERED: 10/11/23 SP TYPE: Pap Smr OT DR: ORDERED: Pap Smear Interpretation Satisfactory for evaluation. No endocervical cells seen. Negative for intraepithelial lesion or malignancy. Microorganisms consistent with Trichomonas vaginalis. HPV mRNA E6/E7: NOT DETECTED This assay detects E6/E7 viral messenger RNA (mRNA) from 14 high-risk HPV types (16, 18, 31, 33, 35, 39, 45, 51, 52, 56, 58, 59, 66, 68) HPV testing performed by [employer] [place], [place]. See reference laboratory portion of the EMR for entire report. Clinical Information Previous PAP test: WNL Material Received ThinPrep-Cervical ----- ------- Signed (signature on file) Arabella Joyce 10/30/23 1645 ----- ------- END OF REPORT Ester Chacko CNM LAB CYTOLOGY ORDERABLES F inal Result [facility] [address] [place] [phone] from Last 3 Months or Most Recently Relevant to Health Maintenance Insurance Care Teams Contact Worker Relationship Specialty Start Date End Date Abiola Campbell ANP [address] [place] [phone] PCP - General Family Medicine 10/08/19
--- OUTSIDE RECORDS SUMMARY | 2025-05-11 18:39 | XMS_ITS | Encounter Summary ---
Author Organization [employer] Address [address] [place] [address] Care Team Providers Care Surfacer Name Role Phone Abiola Campbell Primary Care Provider [phone] Reason for Visit * Reason Onset Date Comments Nurse Triage 08/23/2023 Encounter Details Date Type Department Care Team (Late st Contact Info) Description 08/23/2023 Telephone [facility] [address] [place] [address] Abiola Campbell ANP [address] [place] [address] Nurse Triage Social History Tobacco Use Types [...] work. Pt is advised to come to [facility] for provider to see Pt and obtain [...] on filedocumented in this encounter Care Teams Surfacer Relationship Specialty Start Date End Date Abiola Campbell ANP [address] [place] [phone] PCP - General Family Medicine 10/08/19 documented as of this encounter
--- OUTSIDE RECORDS SUMMARY | 2025-05-11 18:39 | XMS_ITS | Encounter Summary ---
Author Organization [employer] Address [address] [place] [address] Care Team Providers Care Insurance Commissioner Name Role Phone Abiola Campbell Primary Care Provider [phone] Reason for Visit * Reason Onset Date Comments appt or medication 08/18/2022 Encounter Details Date Type Department Care Team ([facility] st Contact Info) Description 08/18/2022 Telephone [facility] [address] [place] [address] Jenna Hager DDS [address] [place] [address] appt or medication Social History Tobacco Use [...] appt and she is waiting on Dr. Gabbi kahn. I will send pain medication for her, [...] on filedocumented in this encounter Care Teams Insurance Commissioner Relationship Specialty Start Date End Date Abiola Campbell ANP [address] [place] [phone] PCP - General Family Medicine 10/08/19 documented as of this encounter
--- OUTSIDE RECORDS SUMMARY | 2025-05-11 18:39 | XMS_ITS | Encounter Summary ---
Author Organization [employer] Address [address] [place] [address] Care Team Providers Care Funding Coordinator Name Role Phone Abiola Campbell Primary Care Provider [phone] Reason for Visit * Reason Onset Date Comments Results 08/15/2023 Encounter Details Date Type Department Care Team ([facility] st Contact Info) Description 08/15/2023 Telephone [facility] [address] [place] [address] Abiola Campbell ANP [address] [place] [address] Results Social History Tobacco Use Types Packs/Day [...] EDT Results are still pending, inform pt. [facility] will call once received result. Pt. Verbally agreed and understood. * Telephone Encounter - Rhina Ovalle - 08/15/2023 9:21 AM EDT TC from pt requesting call back regarding Results. Type of results: urinalysis and swab Date when done: 08/13 Facility: [facility] Please contact pt at [phone] documented in this encounter Plan of Treatment Not on file documented as of this encounter Visit Diagnoses Not on filedocumented in this encounter Care Teams Funding Coordinator Relationship Specialty Start Date End Date Abiola Campbell ANP [address] [place] [phone] PCP - General Family Medicine 10/08/19 documented as of this encounter
== END 2025-05-11 18:38 | disposition home or self-care (01) ==
LOC: HO.ED 18:37
PROVIDERS: Nurse Practitioner; Emergency Provider Emergency Medicine
DX: J10.1 Influenza due to other identified influenza virus with other respiratory manifestations (principal); R05.9 Cough, unspecified; Z79.899 Other long term (current) drug therapy
CPT/HCPCS: 87637; 99283